=== PATIENT | male | born 1950 | race African-American/Black ===

== ENCOUNTER → 2020-04-17 | Outpatient (CLI) | payer MEDICARE ==
[~2020-04-17] MED LIST: CAPECITABINE500 MG PO; CARVEDILOL12.5 MG PO; CHRONULAC20 GM/30 M PO; CYPROHEPTADINE H4 MG PO; DIAMOX 250 MG250 MG PO; FAST RELIEF LAX10 MG PR; HYDROXYZINE HCL10 MG PO; LASIX20 MG PO; LISINOPRIL5 MG PO; OMEPRAZOLE40 MG PO; POTASSIUM CHLO10 MEQ PO; REFRESH CLASSI1 EACH OP; ROXICODONE5 MG PO; SENEXON-S 50-81 EACH PO; VITAMIN B-6100 MG PO; ZOFRAN4 MG PO
[2020-04-17 06:35] LABS: HEMOGLOBIN 8.1 gm/dl (14.0-17.5); RED BLOOD COUNT 2.51 M/UL (4.20-5.50)
== END ==
LOC: LAB 06:06
PROVIDERS: Family Medicine
DX: C18.9 Malignant neoplasm of colon, unspecified (principal)
CPT/HCPCS: 80048; 83735; 85025

== ENCOUNTER 2020-05-26 11:24 | Observation (INO) | payer MEDICARE, BC ==
[~2020-05-26] VITALS: Ht 167.6 cm; Wt 52.6 kg
[2020-05-26 12:19] LABS: HEMOGLOBIN 11.6 gm/dl (14.0-17.5); RED BLOOD COUNT 3.56 M/UL (4.20-5.50); WHITE BLOOD COUNT 2.3 K/UL (4.5-11.0)
[2020-05-26] MEDS ORDERED: ROXICODONE5 MG PO (13:37)
[2020-05-26] MEDS ORDERED: ZOFRAN4 MG PO (13:37)
[2020-05-26] MEDS ORDERED: LASIX20 MG PO (13:38)
[2020-05-26] MEDS ORDERED: POTASSIUM CHLO10 MEQ PO (13:38)
[2020-05-26] MEDS ORDERED: LISINOPRIL5 MG PO (13:39)
[2020-05-26] MEDS ORDERED: OMEPRAZOLE40 MG PO (13:39)
[2020-05-26] MEDS ORDERED: VITAMIN B-6100 MG PO (13:39)
[2020-05-26] MEDS ORDERED: CYPROHEPTADINE H4 MG PO (13:40)
[2020-05-26] MEDS ORDERED: CARVEDILOL12.5 MG PO (13:40)
[2020-05-26] MEDS ORDERED: DIAMOX 250 MG250 MG PO (13:41)
[2020-05-26] MEDS ORDERED: HYDROXYZINE HCL10 MG PO (13:42)
[2020-05-26] MEDS ORDERED: REFRESH CLASSI1 EACH OP (13:42)
[2020-05-26] MEDS ORDERED: CHRONULAC20 GM/30 M PO (13:42)
[2020-05-26] MEDS ORDERED: FAST RELIEF LAX10 MG PR (13:46)
[2020-05-26] MEDS ORDERED: SENEXON-S 50-81 EACH PO (13:46)
[2020-05-26] MEDS ORDERED: CAPECITABINE500 MG PO (13:47)
[2020-05-27 06:53] LABS: HEMOGLOBIN 9.4 gm/dl (14.0-17.5); RED BLOOD COUNT 2.97 M/UL (4.20-5.50)
[2020-05-28 06:29] LABS: HEMOGLOBIN 9.5 gm/dl (14.0-17.5); RED BLOOD COUNT 2.92 M/UL (4.20-5.50); WHITE BLOOD COUNT 2.2 K/UL (4.5-11.0)
[2020-05-28 07:05] LABS: BUN/CREATININE RATIO 45 (0-10)
[2020-05-28 21:39] LABS: BUN/CREATININE RATIO 48 (0-10)
[2020-05-29 03:24] LABS: RED BLOOD COUNT 3.08 M/UL (4.20-5.50)
[2020-05-29 03:33] LABS: WHITE BLOOD COUNT 2.8 K/UL (4.5-11.0)
[2020-05-29 03:41] LABS: BUN/CREATININE RATIO 39 (0-10)
[2020-05-29] MEDS ORDERED: ROXICODONE5 MG PO ×2 (12:11→12:13)
--- NOTE | 2020-05-29 15:40 | NUR ---
EMS was called at [id number] for the patient to go back to [facility] report was given to dayami quinonez
== END 2020-05-29 16:20 ==
LOC: ER1 11:24 → CDU 13:13 → MED SURG 4 05-27
PROVIDERS: Emergency Medicine; Internal Medicine; Physician Assistant; Physician Assistant Medical; ADMIT Internal Medicine
DX: N17.9 Acute kidney failure, unspecified (principal); I13.0 Hypertensive heart and chronic kidney disease with heart failure and stage 1 through stage 4 chronic kidney disease, or unspecified chronic kidney disease; E11.22 Type 2 diabetes mellitus with diabetic chronic kidney disease; N18.30 Chronic kidney disease, stage 3 unspecified; I50.9 Heart failure, unspecified; E86.0 Dehydration; C18.9 Malignant neoplasm of colon, unspecified; D61.818 Other pancytopenia; I44.7 Left bundle-branch block, unspecified; D53.9 Nutritional anemia, unspecified; E78.5 Hyperlipidemia, unspecified; K21.9 Gastro-esophageal reflux disease without esophagitis; R77.8 Other specified abnormalities of plasma proteins; E87.0 Hyperosmolality and hypernatremia; K59.00 Constipation, unspecified; Z93.3 Colostomy status; Z20.822 Contact with and (suspected) exposure to COVID-19; Z79.899 Other long term (current) drug therapy
CPT/HCPCS: 36415; 71045; 74018; 80048; 80053; 82550; 82553; 82962; 83036; 83735; 83874; 84484; 85025; 85027; 93005; 96372; 96374; 96375; 99285; G0378; J2405; J7030; J7040; U0002

== ENCOUNTER 2020-06-03 15:24 | Emergency (ER) | payer BC, MEDICARE ==
[2020-06-03 16:14] LABS: HEMOGLOBIN 8.3 gm/dl (14.0-17.5); RED BLOOD COUNT 2.59 M/UL (4.20-5.50); WHITE BLOOD COUNT 2.4 K/UL (4.5-11.0)
[2020-06-03 16:34] LABS: BUN/CREATININE RATIO 28 (0-10)
[2020-06-04 04:43] LABS: HEMOGLOBIN 8.1 gm/dl (14.0-17.5); RED BLOOD COUNT 2.51 M/UL (4.20-5.50)
[2020-06-04 04:52] LABS: WHITE BLOOD COUNT 1.6 K/UL (4.5-11.0)
[2020-06-04 05:02] LABS: BUN/CREATININE RATIO 28 (0-10)
== END 2020-06-04 12:30 | disposition short-term general hospital (02) ==
LOC: ER1 15:24
PROVIDERS: Emergency Medicine
DX: K92.2 Gastrointestinal hemorrhage, unspecified (principal); D69.6 Thrombocytopenia, unspecified; E11.9 Type 2 diabetes mellitus without complications
CPT/HCPCS: 36430; 70450; 71045; 72125; 72128; 72131; 80048; 80053; 83605; 83690; 83735; 85025; 85610; 86900; 86901; 87040; 96374; 96375; 96376; 99285; C9113; J2405; P9035